=== PATIENT | male | born 1960 | race Caucasian/White ===

== ENCOUNTER 2018-12-07 09:35 | Emergency (ER) | payer OTHER, SELFPAY ==
[2018-12-07 09:38] VITALS: BP 122/83; PULSE 88; RESP 16; TEMP 36.4; O2SAT 92
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
[2018-12-07 12:17] VITALS: BP 144/60; PULSE 87; RESP 16; O2SAT 94
[2018-12-07 12:53] VITALS: BP 115/75; PULSE 102; RESP 16; O2SAT 94
== END 2018-12-07 12:54 | disposition home or self-care (01) ==
PROVIDERS: Emergency Provider Physician Assistant
DX: S00.81XA Abrasion of other part of head, initial encounter (principal); S30.811A Abrasion of abdominal wall, initial encounter; S40.812A Abrasion of left upper arm, initial encounter; S50.811A Abrasion of right forearm, initial encounter; V47.5XXA Car driver injured in collision with fixed or stationary object in traffic accident, initial encounter; E11.9 Type 2 diabetes mellitus without complications; Z79.84 Long term (current) use of oral hypoglycemic drugs
CPT/HCPCS: 99282; 99283